=== PATIENT | female | born 1935 | race Caucasian/White ===

== ENCOUNTER 2017-11-29 00:57 | Inpatient (IN) | payer MEDICARE, OTHER ==
[2017-11-29 01:43] VITALS: BP 124/79
[2017-11-29] MEDS ORDERED: Magnesium Hydroxide (MOM) 30 mL UDC PO PRN (01:55)
[2017-11-29] MEDS ORDERED: Maalox 30 mL Cup PO PRN (01:55)
[2017-11-29] MEDS: INSULIN ASPART SLIDING SCALE 100 UNITS/ML UNIT SUBQ SCH ×4 (06:56→21:11)
[2017-11-29] MEDS: Levothyroxine 0.112 Mg Tab PO SCH (06:57)
[2017-11-29] MEDS: Lactobacillus Rhamnosus GG 15 Billion CFU CAP.SPRINK PO SCH (09:20)
[2017-11-29] MEDS: Atorvastatin Calcium 10 MG TAB PO SCH (09:20)
--- NOTE | 2017-11-29 22:20 | Psychosocial Evaluation ---
DATE OF SERVICE: 11/29/2017 IDENTIFYING DATA: The patient is an 82-year-old admitted from [place]. Information obtained by directly interviewing the patient as well as reviewing the admission papers this hospitalization. The patient is admitted because of aggressive behavior. The patient is noted to be yelling and screaming and is not able to give much of any information. The patient has been saying that she does not need to give me any information. Prior to the hospitalization, the patient has been on Zyprexa and Risperdal. The patient at this time is isolative and withdrawn. The patient has been medically cleared by [facility]. PAST PSYCHIATRIC HISTORY: Details are not known. Physical examination is requested by Dr. Alex Diaz. SUBSTANCE ABUSE HISTORY: None. PHYSICAL OR SEXUAL ABUSE HISTORY: None. LEGAL PROBLEMS: None at this time. STRENGTH AND ASSETS: MENTAL STATUS EXAMINATION: The patient is an 82-year-old woman looking her stated age, superficially cooperative. Eye contact is poor. Mood is noted to be irritable. Affect is constricted. Insight and judgment at this time are noted to be impaired. Impulse control is noted to be limited. The patient is very paranoid and has been screaming and yelling at the time of the hospitalization. The patient is reluctant to give me any information at this time. The patient has no insight into her illness. The patient's behavior is likely a danger to self as well as others. The patient is also gravely disabled. DIAGNOSTIC IMPRESSION: AXIS I: Psychotic disorder, not otherwise specified. 1B: Dementia and behavioral change secondary trait. IMMEDIATE TREATMENT PLAN: The patient is going to be observed on the inpatient unit, provided with supportive psychotherapy. The patient is going to be closely monitored. Once stabilized, the patient is going to be discharged to [facility] to be followed up on an outpatient basis. JOB# [id number]
[2017-11-30] MEDS: Levothyroxine 0.112 Mg Tab PO SCH (07:12)
[2017-11-30] MEDS: INSULIN ASPART SLIDING SCALE 100 UNITS/ML UNIT SUBQ SCH ×4 (07:12→21:28)
[2017-11-30] MEDS: Atorvastatin Calcium 10 MG TAB PO SCH (09:05)
[2017-11-30] MEDS: Lactobacillus Rhamnosus GG 15 Billion CFU CAP.SPRINK PO SCH (09:06)
--- NOTE | 2017-11-30 20:19 | Progress Notes ---
DATE: 11/30/2017 SUBJECTIVE: Staff was spoken to. The patient is interviewed. Mood is noted to be irritable. Affect is constricted. Insight and judgment are noted to be still impaired. Impulse control is poor. The patient is screaming and yelling. Continues to be very paranoid. The patient is currently on Zyprexa and Depakote, able to tolerate the medication. The patient tends to be ____. ASSESSMENT: The patient is still grossly psychotic. PLAN: To continue the patient with the supportive therapy, encouraged the patient to verbalize the consensus. The patient is both on the Zyprexa and Risperdal, it is decided to discontinue the Risperdal and continue just with the Zyprexa and follow the patient up. JOB# [id number]
[2017-12-01] MEDS: INSULIN ASPART SLIDING SCALE 100 UNITS/ML UNIT SUBQ SCH ×4 (06:32→21:28)
[2017-12-01] MEDS: Levothyroxine 0.112 Mg Tab PO SCH (06:33)
[2017-12-01] MEDS: Atorvastatin Calcium 10 MG TAB PO SCH (09:42)
[2017-12-01] MEDS: Lactobacillus Rhamnosus GG 15 Billion CFU CAP.SPRINK PO SCH (09:43)
--- NOTE | 2017-12-01 13:31 | Progress Notes ---
DATE: 12/01/2017 SUBJECTIVE: Staff was spoken to. The patient is interviewed. Mood is noted to be irritable. Affect is constricted. Insight and judgment are still noted to be impaired. The patient is getting easily irritable and angry. The patient's coping skills are noted to be very poor. The patient is currently isolated and withdrawn. The patient has paranoid delusions, but denies any command hallucinations. The patient is currently on olanzapine 5 mg twice a day and has been able to tolerate the medication. His short and long-term memory are noted to be impaired. ASSESSMENT: The patient is still psychotic and impulsive. PLAN: To continue the patient with the supportive therapy and encouraged the patient to verbalize the concerns rather than to act out. [facility]# [id number]
[2017-12-02] MEDS: INSULIN ASPART SLIDING SCALE 100 UNITS/ML UNIT SUBQ SCH ×4 (06:31→20:28)
[2017-12-02] MEDS: Levothyroxine 0.112 Mg Tab PO SCH (06:48)
--- NOTE | 2017-12-02 09:21 | History & Physical ---
ADMIT DATE: 11/28/2017 INTERNAL MEDICINE CONSULTATION The patient is an 88-year-old female with past medical history significant for diabetes mellitus, hypothyroidism, coronary artery disease, hyperlipidemia, peptic ulcer disease, gastritis, arthritis, and advanced psychosis. SOCIAL HISTORY: No history of smoking or alcohol abuse. FAMILY HISTORY: Not available. OBSTETRIC HISTORY: P2 plus 0. Menses, postmenopausal. REVIEW OF SYSTEMS: No vomiting, no diarrhea, no melena, no hematochezia. PHYSICAL EXAMINATION: GENERAL: Average female in no obvious respiratory distress. VITAL SIGNS: Include a blood pressure 140/80, heart rate 80, respiration rate of 18. SKIN: Show no cellulitis. HEENT: Normal conjunctivae. NECK: Supple. LUNGS: Clear bilateral good entry. No adventitious sounds. HEART: First and second present. ABDOMEN: Soft, minimal epigastric tenderness. Bowel sounds are good. EXTREMITIES: Show arthritis. NEUROLOGIC: The patient has dementia with no focal motor deficits. MEDICAL DIAGNOSES: Include diabetes mellitus, diabetic angiopathy, neuropathy, hypothyroidism, coronary artery disease, peptic ulcer disease, gastritis, arthritis, and hyperlipidemia. CURRENT MEDICATIONS: Include levothyroxine, Lipitor. The patient on sliding scale. Rest of the medicines as per psychiatrist. JOB# [id number]
[2017-12-02] MEDS: Lactobacillus Rhamnosus GG 15 Billion CFU CAP.SPRINK PO SCH (10:11)
[2017-12-02] MEDS: Atorvastatin Calcium 10 MG TAB PO SCH (10:12)
--- NOTE | 2017-12-02 21:11 | Progress Notes ---
DATE: 12/02/2017 SUBJECTIVE: Staff was spoken to. The patient is interviewed. Mood is noted to be irritable. Affect is constricted. The patient's coping skills are noted to be very poor. The patient is screaming and yelling. No side effects to the medications are noted. The patient has been reluctant to give any information. The patient's sleep is noted to be fair. Appetite is noted to be improving. ASSESSMENT: The patient is still psychotic and impulsive. PLAN: To continue the patient with the supportive therapy and current medications and follow up. JOB# [id number]
[2017-12-03] MEDS: INSULIN ASPART SLIDING SCALE 100 UNITS/ML UNIT SUBQ SCH ×4 (06:49→20:24)
[2017-12-03] MEDS: Levothyroxine 0.112 Mg Tab PO SCH (06:52)
[2017-12-03] MEDS: Lactobacillus Rhamnosus GG 15 Billion CFU CAP.SPRINK PO SCH (09:36)
[2017-12-03] MEDS: Atorvastatin Calcium 10 MG TAB PO SCH (09:37)
--- NOTE | 2017-12-03 23:49 | Progress Notes ---
DATE: 12/03/2017 SUBJECTIVE: Staff are spoken to. The patient is interviewed. Mood is noted to be irritable. Affect is constricted. Coping skills are noted to be very poor. The patient is still testing the limits, continues to be very paranoid, but denies any command hallucinations. No visual hallucinations are noted. The patient is currently on 5 mg twice a day of the olanzapine and is also receiving the ____ and the patient has been able to tolerate. No side effects to the medications are noted today. ASSESSMENT: The patient is still psychotic and impulsive. PLAN: Continue the patient with the supportive therapy and followup. JOB# [id number]
[2017-12-04] MEDS: INSULIN ASPART SLIDING SCALE 100 UNITS/ML UNIT SUBQ SCH ×4 (06:30→21:00)
[2017-12-04] MEDS: Levothyroxine 0.112 Mg Tab PO SCH (06:31)
[2017-12-04] MEDS: Lactobacillus Rhamnosus GG 15 Billion CFU CAP.SPRINK PO SCH (09:44)
[2017-12-04] MEDS: Atorvastatin Calcium 10 MG TAB PO SCH (09:45)
--- NOTE | 2017-12-04 18:54 | Progress Notes ---
DATE: 12/04/2017 The staff was spoken to. The patient is interviewed. Mood is noted to be irritable. Affect is constricted. Insight and judgment at this time are noted to be still impaired. Impulse control seems to be limited. Coping skills are noted to be limited. The patient has been very drowsy and hence it is decided to decrease the dose on the Zyprexa to 2.5 mg twice a day and follow the patient up with the supportive therapy. JOB# [id number]
[2017-12-05] MEDS: INSULIN ASPART SLIDING SCALE 100 UNITS/ML UNIT SUBQ SCH ×4 (06:39→20:54)
[2017-12-05] MEDS: Levothyroxine 0.112 Mg Tab PO SCH (06:39)
[2017-12-05] MEDS: Atorvastatin Calcium 10 MG TAB PO SCH (08:42)
[2017-12-05] MEDS: Lactobacillus Rhamnosus GG 15 Billion CFU CAP.SPRINK PO SCH (08:51)
[2017-12-05] MEDS: Magnesium Hydroxide (MOM) 30 mL UDC PO PRN (17:05)
--- NOTE | 2017-12-05 23:02 | Progress Notes ---
DATE: 12/05/2017 SUBJECTIVE: Staff was spoken to. The patient is interviewed. Mood is noted to be irritable. Affect is constricted. Coping skill was noted to be still poor. Sleep and appetite are also noted to be very poor. The patient has been very, very groggy and the patient is on Zyprexa, has been decreased to 2.5 mg at bedtime. No side effects to the medications are noted today. The patient has been able to participate in the groups, but verbalizations are minimal today. ASSESSMENT: The patient is still impulsive. PLAN: To continue the patient with the supportive therapy and followup. JOB# [id number]
[2017-12-06] MEDS: INSULIN ASPART SLIDING SCALE 100 UNITS/ML UNIT SUBQ SCH ×4 (06:41→20:39)
[2017-12-06] MEDS: Levothyroxine 0.112 Mg Tab PO SCH (06:42)
[2017-12-06] MEDS: Atorvastatin Calcium 10 MG TAB PO SCH ×2 (08:35→08:42)
[2017-12-06] MEDS: Lactobacillus Rhamnosus GG 15 Billion CFU CAP.SPRINK PO SCH ×2 (08:36→08:43)
--- NOTE | 2017-12-06 11:47 | Progress Notes ---
DATE: 12/06/2017 SUBJECTIVE: Staff was spoken to. Patient is interviewed. Mood is noted to be irritable. Affect is constricted. Coping skills are noted to be very poor. The patient has been having difficult time to cope with the stress. The patient is not making much sense. The patient, however, has been complying with the medication. PLAN: The patient has been placed on the valproic acid 125 mg daily and olanzapine 2.5 mg daily. In view of the patient's drowsiness, it is decided to change the olanzapine to only at bedtime. The patient is going to be followed up with the supportive therapy. The patient at this time is not ready to be discharged to a lower level of care yet. [facility]# [id number]
[2017-12-07] MEDS: INSULIN ASPART SLIDING SCALE 100 UNITS/ML UNIT SUBQ SCH ×4 (06:45→21:10)
[2017-12-07] MEDS: Levothyroxine 0.112 Mg Tab PO SCH (06:57)
[2017-12-07] MEDS: Lactobacillus Rhamnosus GG 15 Billion CFU CAP.SPRINK PO SCH (09:55)
[2017-12-07] MEDS: Atorvastatin Calcium 10 MG TAB PO SCH (09:55)
--- NOTE | 2017-12-07 20:46 | Progress Notes ---
DATE: 12/07/2017 SUBJECTIVE: Staff was spoken to. The patient is interviewed. Mood is noted to be dysphoric. Coping skills are noted to be poor. The patient is sitting in the wheelchair and has not been making much sense. The patient is going on a tangent. No side effects to medications are noted at this time. Sleep and appetite are noted to be poor. ASSESSMENT: The patient is still psychotic and impulsive. PLAN: To continue the patient with the supportive therapy. Encouraged the patient to verbalize the concerns rather than to act out. JOB# [id number]
[2017-12-08] MEDS: INSULIN ASPART SLIDING SCALE 100 UNITS/ML UNIT SUBQ SCH ×4 (06:45→21:58)
[2017-12-08] MEDS: Levothyroxine 0.112 Mg Tab PO SCH (06:46)
[2017-12-08] MEDS: Atorvastatin Calcium 10 MG TAB PO SCH (09:15)
[2017-12-08] MEDS: Lactobacillus Rhamnosus GG 15 Billion CFU CAP.SPRINK PO SCH (09:16)
--- NOTE | 2017-12-08 10:03 | Diagnostic Imaging Report ---
CT scan of the brain without intravenous contrast HISTORY: Headache, trauma Total DLP equals 614 CTDI equals 32.2 Axial sections were obtained from the base of the skull to the vertex. There is prominence/enlargement of the ventricular system size. Associated enlargement of cerebral sulci and subarachnoid cisterns. Findings are consistent with changes of generalized cerebral atrophy. No acute parenchymal abnormalities. No acute cerebral hemorrhage. Hypodensity is seen within the supratentorial white matter regions without mass effect. The findings may be associated with chronic small vessel ischemic disease. No extra-axial masses or abnormal fluid collections. Soft tissue swelling noted over the right frontal parietal region of the skull. IMPRESSION: 1. No acute abnormalities 2. Cerebral atrophy 3. Supratentorial white matter changes that may reflect chronic small vessel ischemic disease 4. Soft tissue swelling over the right frontal parietal region of the skull.
--- NOTE | 2017-12-08 10:06 | Diagnostic Imaging Report ---
CT scan cervical spine HISTORY: Pain, trauma Total DLP equals 228 CTDI equals 11.3 Axial sections were obtained through the cervical spine. Additional sagittal and coronal reformatted images are provided. Generalized osteoporosis. There are diffuse degenerative changes with hypertrophic spur formation noted about the endplate of all vertebrae. Narrowing of the C4-5, C5-6, T6-7 interspaces. No acute abnormalities. No fractures. The prevertebral soft tissues appear normal. IMPRESSION: 1. No acute abnormalities 2. Diffuse degenerative changes 3. Biapical pulmonary parenchymal changes consistent with old inflammatory disease.
--- NOTE | 2017-12-08 20:00 | Progress Notes ---
DATE: 12/08/2017 SUBJECTIVE: Staff was spoken to. Patient is interviewed. Mood is noted to be irritable. Affect is constricted. Coping skills are noted to be extremely poor. The patient is screaming and yelling and pounding on the wheelchair plank. The patient has no insight into her illness. The patient is reported to have been trying to stand up on her bed and fell down and sustained injury on the right side. The patient has a black eye. ASSESSMENT: The patient is still impulsive and paranoid. PLAN: To continue the patient with the supportive therapy. The patient is not able to clearly articulate what the concerns are. Plan to closely monitor the patient with the current medications and closely monitor and observe for any impulsive behavior. The patient is not ready to be discharged to a lower level of care yet. [facility]# [id number]
[2017-12-09] MEDS: INSULIN ASPART SLIDING SCALE 100 UNITS/ML UNIT SUBQ SCH ×4 (06:47→21:30)
[2017-12-09] MEDS: Levothyroxine 0.112 Mg Tab PO SCH (06:48)
--- NOTE | 2017-12-09 07:32 | Diagnostic Imaging Report ---
Exam: X-ray of the pelvis 2 views HISTORY: Status post fall Findings: Frontal examination of pelvis was reviewed. The study demonstrates no evidence for fracture dislocation. Sacroiliac joints, hip joints and pubic symphysis are intact. Large amount of fecal content is noted in the rectum. Calcified uterine fibroid identified. IMPRESSION: Essentially unremarkable examination of the pelvis.
[2017-12-09] MEDS: Atorvastatin Calcium 10 MG TAB PO SCH (09:24)
--- NOTE | 2017-12-09 10:26 | Progress Notes ---
DATE: 12/09/2017 SUBJECTIVE: Staff was spoken to. The patient is interviewed. Mood is noted to be irritable. Affect is constricted. The patient is screaming and yelling and slamming on the wheelchair. The patient's coping skills are noted to be extremely poor. No side effects to the medications are noted in view of her impulsivity, it is decided to increase the dose on the Depakote to 250 mg in the morning and closely monitor the patient. The patient is not ready to be discharged to a lower level of care in view of her impulsivity. JOB# [id number]
[2017-12-10] MEDS: Levothyroxine 0.112 Mg Tab PO SCH (06:33)
[2017-12-10] MEDS: Atorvastatin Calcium 10 MG TAB PO SCH (10:51)
--- NOTE | 2017-12-10 17:29 | Progress Notes ---
DATE: 12/10/2017 PSYCHIATRIC PROGRESS NOTE SUBJECTIVE: Staff was spoken to. The patient is interviewed. Mood is noted to be anxious. The patient's coping skills are noted to be improving. The patient has been isolative and withdrawn, but the aggressive behavior seems to be under control today. The patient is not banging on the GD chair. ASSESSMENT: The patient, however, is still confused and demented. PLAN: To continue the patient with these current medications. I encouraged the patient to verbalize the concerns rather than to act out. JOB# [id number]
[2017-12-10] MEDS: INSULIN ASPART SLIDING SCALE 100 UNITS/ML UNIT SUBQ SCH ×2 (17:37→21:54)
[2017-12-11] MEDS: INSULIN ASPART SLIDING SCALE 100 UNITS/ML UNIT SUBQ SCH ×4 (07:32→20:30)
[2017-12-11] MEDS: Levothyroxine 0.112 Mg Tab PO SCH (07:33)
[2017-12-11] MEDS: Atorvastatin Calcium 10 MG TAB PO SCH (18:43)
--- NOTE | 2017-12-11 23:26 | Progress Notes ---
DATE: 12/11/2017 SUBJECTIVE: Staff was spoken to. The patient is interviewed. Mood is noted to be irritable. Affect is constricted. Continues to be screaming and yelling and has been hitting the chair. The patient has no insight into her illness. The patient's coping skills are noted to be very poor. The patient is currently on 2.5 mg of the Zyprexa, which is going to be increased to 2.5 mg twice a day, and the patient is going to be followed up with supportive therapy. JOB# [id number]
[2017-12-12] MEDS: Atorvastatin Calcium 10 MG TAB PO SCH (09:40)
--- NOTE | 2017-12-12 14:45 | Progress Notes ---
DATE: 12/12/2017 SUBJECTIVE: Staff was spoken to. The patient is interviewed. Mood is noted to be irritable. Affect is constricted. Continues to be paranoid and patient has been screaming and yelling. The patient has been banging on the [facility] chair. The patient is currently on 2.5 mg of olanzapine and then 250 mg of the valproic acid. The patient has been able to tolerate the medication. ASSESSMENT: The patient is still impulsive. PLAN: To continue the patient with the supportive therapy and followup. JOB# [id number]
[2017-12-12] MEDS: INSULIN ASPART SLIDING SCALE 100 UNITS/ML UNIT SUBQ SCH ×2 (16:34→21:04)
[2017-12-13] MEDS: Levothyroxine 0.112 Mg Tab PO SCH (06:31)
[2017-12-13] MEDS: INSULIN ASPART SLIDING SCALE 100 UNITS/ML UNIT SUBQ SCH ×4 (06:31→21:40)
[2017-12-13] MEDS: Atorvastatin Calcium 10 MG TAB PO SCH (09:06)
[2017-12-13] MEDS ORDERED: Fleet Enema 135 mL RC PRN (18:24)
--- NOTE | 2017-12-13 22:03 | Progress Notes ---
DATE: 12/13/2017 PSYCHIATRIC PROGRESS NOTE SUBJECTIVE: Staff was spoken to. The patient is interviewed. Mood is noted to be irritable. Affect is constricted. Coping skills are noted to be still poor. Sleep and appetite also noted to be poor. The patient has been banging on the G[facility] chair. The patient has been not making much sense. ASSESSMENT: The patient is still psychotic. PLAN: To continue the patient with Zyprexa and Depakote and follow the patient with the supportive therapy. JOB# [id number]
[2017-12-14] MEDS: Levothyroxine 0.112 Mg Tab PO SCH (06:53)
[2017-12-14] MEDS: INSULIN ASPART SLIDING SCALE 100 UNITS/ML UNIT SUBQ SCH ×4 (06:53→21:31)
[2017-12-14] MEDS: Atorvastatin Calcium 10 MG TAB PO SCH (09:58)
--- NOTE | 2017-12-14 14:50 | Progress Notes ---
DATE: 12/14/2017 PSYCHIATRIC PROGRESS NOTE SUBJECTIVE: Staff was spoken to. The patient is interviewed. Mood is noted to be irritable. Affect is constricted. Coping skills are noted to be still poor. The patient has been having difficult time to cope with the stress. No side effects to the medications are noted. The patient has been isolative and withdrawn. The patient is still responding to any internal stimuli and not able to make much sense today. ASSESSMENT: The patient is still impulsive. PLAN: To continue the patient with supportive therapy. Encouraged the patient to verbalize the concerns rather than to act out. The patient is able to tolerate the medication so far. No side effects to the medications are noted. The patient's bruise on the right side of the eye area has been resolving. The patient is currently on the olanzapine 2.5 mg twice a day and valproic acid 250 mg twice a day and has been able to tolerate. JOB# [id number]
[2017-12-14] MEDS: Magnesium Hydroxide (MOM) 30 mL UDC PO PRN (17:41)
[2017-12-15] MEDS: INSULIN ASPART SLIDING SCALE 100 UNITS/ML UNIT SUBQ SCH ×4 (06:55→21:03)
[2017-12-15] MEDS: Levothyroxine 0.112 Mg Tab PO SCH (07:08)
--- NOTE | 2017-12-15 08:52 | Progress Notes ---
DATE: 12/15/2017 SUBJECTIVE: Staff was spoken to. The patient is interviewed. Mood is noted to be anxious. Affect is constricted. The patient is isolative and withdrawn. Insight and judgment at this time are noted to be improving. Impulse control seems to be fair. No side effects to medications are noted. The patient has been isolative and withdrawn today. The patient is not presenting with any aggressive behavior. ASSESSMENT: The patient's psychosis is resolving, if the patient continues to be this way, possibly the patient is going to be discharged tomorrow to the facility for further followup. JOB# [id number]
[2017-12-15] MEDS: Atorvastatin Calcium 10 MG TAB PO SCH (09:11)
[2017-12-15] MEDS: Magnesium Hydroxide (MOM) 30 mL UDC PO PRN (17:25)
[2017-12-16] MEDS: Levothyroxine 0.112 Mg Tab PO SCH (06:32)
[2017-12-16] MEDS: INSULIN ASPART SLIDING SCALE 100 UNITS/ML UNIT SUBQ SCH ×4 (06:32→20:47)
[2017-12-16] MEDS: Atorvastatin Calcium 10 MG TAB PO SCH (11:23)
--- NOTE | 2017-12-16 20:21 | Progress Notes ---
DATE: 12/16/2017 PROGRESS NOTE SUBJECTIVE: Staff was spoken to. The patient is interviewed. Mood is noted to be anxious. Affect is appropriate. Coping skills at this time are noted to be improving. Sleep and appetite also noted to be improving. No side effects to the medications are noted. The patient is less aggressive today. ASSESSMENT: The patient is stabilizing. PLAN: To discharge the patient today for followup on outpatient basis. [facility]# [id number]
[2017-12-17] MEDS: INSULIN ASPART SLIDING SCALE 100 UNITS/ML UNIT SUBQ SCH ×3 (06:42→21:00)
[2017-12-17] MEDS: Levothyroxine 0.112 Mg Tab PO SCH (06:43)
[2017-12-17] MEDS: Atorvastatin Calcium 10 MG TAB PO SCH (09:53)
--- NOTE | 2017-12-18 03:04 | Progress Notes ---
DATE: 12/17/2017 SUBJECTIVE: Staff was spoken to. The patient is interviewed. Mood is noted to be irritable. Affect is constricted. The patient's insight and judgment are noted to be improving. Impulse control seems to be fair today. The patient is not screaming and yelling. No side effects to the medications are noted. The patient's family does not want the patient to go to [facility] and placement is going to look into that. The patient is currently on 250 mg of the Depakote and is also getting the 2.5 mg twice a day of the olanzapine and has been able to tolerate the medication. No side effects to the medications are noted. ASSESSMENT: The patient is still impulsive, impulsivity is resolving. PLAN: To continue patient with the supportive therapy. I encouraged the patient to verbalize the concerns rather than to act out. JOB# [id number]
[2017-12-18] MEDS: INSULIN ASPART SLIDING SCALE 100 UNITS/ML UNIT SUBQ SCH ×3 (06:36→17:18)
[2017-12-18] MEDS: Levothyroxine 0.112 Mg Tab PO SCH (06:36)
[2017-12-18] MEDS: Atorvastatin Calcium 10 MG TAB PO SCH (08:51)
--- NOTE | 2017-12-18 17:16 | Progress Notes ---
DATE: 12/18/2017 SUBJECTIVE: Staff was spoken to. The patient is interviewed. Mood is noted to be anxious. Affect is appropriate. The patient is not suicidal or homicidal. Insight and judgment are improving. The patient is currently on 2.5 mg of the Zyprexa twice a day along with the Depakote and has been able to tolerate. No aggressive behavior is noted. The patient has been able to verbalize the concerns. Sleep and appetite also noted to be fair. No side effects to the medications are noted. ASSESSMENT: The patient is stabilizing and awaiting placement. PLAN: To continue the patient with the current medications and followup. JOB# [id number]
--- NOTE | 2017-12-28 20:30 | Discharge Summary ---
DATE OF DISCHARGE: 12/18/2017 IDENTIFYING DATA: The patient is an 82-year-old woman admitted from [place]. Information obtained by directly interviewing the patient as well as reviewing the admission papers. JUSTIFICATION OF HOSPITALIZATION: The patient is admitted here on a voluntary basis in view of her aggression and noncompliance with the medications. DIAGNOSES AT THE TIME OF ADMISSION: AXIS I: A. Psychotic disorder, not otherwise specified. B. Dementia and behavioral change secondary trait. AXIS II: None. AXIS III: As per Dr. Diaz. HOSPITAL COURSE AND RESPONSE TO TREATMENT: The patient's blood work has been reviewed by Dr. Diaz. The patient has been closely monitored on the inpatient unit. The patient from the beginning has been continuously refusing the medications, stating that there is nothing wrong with her, but the patient is noted to be responding to internal stimuli. The patient has been confined herself to the room most of the time. The patient has been initially placed on Depakote 125 mg twice a day and the patient also has been given 2.5 mg of olanzapine twice a day. With these medications, the patient has been observed and was noted to be doing fairly well and the patient was finally discharged to the [facility] for further care. MENTAL STATUS EXAMINATION: At the time of the discharge, the patient's mood is noted to be less irritable. Affect is appropriate. Not suicidal or homicidal. Coping skills are noted to be fair. Insight and judgment are also noted to be improving at the time of the discharge. The patient has been able to verbalize the concerns rather than to act out at the time of the discharge. CONDITION AT THE TIME OF DISCHARGE: Noted to be stable. AFTERCARE PLAN: The patient is discharged to [facility] for further followup. JOB# [id number]
== END 2017-12-18 18:05 | DRG 885 ==
LOC: GERO 00:57
PROVIDERS: ADMIT Psychiatry & Neurology Psychiatry; ATTEND Psychiatry & Neurology Psychiatry
DX: F29 Unspecified psychosis not due to a substance or known physiological condition (principal); E11.40 Type 2 diabetes mellitus with diabetic neuropathy, unspecified; E11.51 Type 2 diabetes mellitus with diabetic peripheral angiopathy without gangrene; F03.91 Unspecified dementia, unspecified severity, with behavioral disturbance; E03.9 Hypothyroidism, unspecified; I25.10 Atherosclerotic heart disease of native coronary artery without angina pectoris; K27.9 Peptic ulcer, site unspecified, unspecified as acute or chronic, without hemorrhage or perforation; K29.70 Gastritis, unspecified, without bleeding; M19.90 Unspecified osteoarthritis, unspecified site; E78.5 Hyperlipidemia, unspecified
CPT/HCPCS: 70450-TC; 72125-TC; 73501; 82948-90; 90899; 94760; G0410; J1815; J7051; Z7610